=== PATIENT | male | born 1995 | race Caucasian/White ===

== ENCOUNTER 2019-03-25 17:05 | Emergency (ER) | payer SELFPAY ==
--- NOTE | 2019-03-25 17:20 | EDM.PDOC ---
ED HPI GENERAL MEDICAL PROBLEM - General Chief Complaint: Flank Pain Stated Complaint: BACK AND SIDE PAIN AND VOMITING Time Seen by Provider: 03/25/19 17:20 - History of Present Illness INITIAL COMMENTS - FREE TEXT/NARRATIVE: 23-year-old male presents to the emergency room with abdominal pain. This started about an hour ago started out as a right mid abdominal pain radiating into the groin. Now he has right-sided flank pain. Denies burning or frequency with urination. No fevers or chills. No prior history of kidney stone. The patient vomited once and has some mild nausea. Right Flank Pain Score (Numeric/FACES): 8 - Related Data Allergies Allergy/AdvReac Type Severity Reaction Status Date / Time No Known Allergies Allergy Verified 03/25/19 17:14 Home Meds: Home Meds Fluticasone/Salmeterol [Advair 250-50 Diskus] 2 puff INH ASDIRECTED 03/25/19 [ History] Hydrocodone/Acetaminophen [[place] 5-325 Tablet] 1 - 2 each PO Q6H PRN #30 tablet 03/25/19 [Rx] Loratadine [Claritin] 10 mg PO DAILY 03/25/19 [History] Ondansetron [Zofran ODT] 4 mg PO Q6H PRN #10 tab.dis 03/25/19 [Rx] Past Medical History Respiratory History: Reports: Asthma, Other (See Below) Other Respiratory History: seasonal allergies - Past Surgical History HEENT Surgical History: Reports: Myringotomy w Tube(s) Social & Family History - Tobacco Use Smoking Status *Q: Never Smoker - Caffeine Use Caffeine Use: Reports: Soda - Recreational Drug Use Recreational Drug Use: No ED ROS GENERAL - Review of Systems Review Of Systems: See Below Constitutional: Reports: No Symptoms HEENT: Reports: No Symptoms Respiratory: Reports: No Symptoms Cardiovascular: Reports: No Symptoms GI/Abdominal: Reports: Abdominal Pain, Nausea, Vomiting. Denies: Constipation, Diarrhea : Reports: Flank Pain. Denies: Discharge, Dysuria, Frequency, Hematuria, Incontinence, Urgency Skin: Reports: No Symptoms Neurological: Reports: No Symptoms ED EXAM, GI/ABD - Physical Exam Exam: See Below Exam Limited By: No Limitations General Appearance: Alert, Mild Distress (From the discomfort but he is very cooperative) Head: Atraumatic, Normocephalic Neck: Normal Inspection, Supple, Non-Tender, Full Range of Motion Respiratory/Chest: No Respiratory Distress, Lungs Clear, Normal Breath Sounds Cardiovascular: Regular Rate, Rhythm, No Edema, No Murmur GI/Abdominal Exam: No Distention, Other (Slightly diminished bowel sounds his pain is right sided not aggravated with palpation no rigidity rebound or guarding) Back Exam: Normal Inspection. No: CVA Tenderness (L), CVA Tenderness (R) Course - Vital Signs Last Recorded V/S: Last Vital Signs Temp 35.9 C 03/25/19 18:15 Pulse 54 L 03/25/19 18:15 Resp 12 03/25/19 18:15 BP 153/94 H 03/25/19 18:15 Pulse Ox 95 03/25/19 18:15 - Orders/Labs/Meds Orders: Active Orders 24 hr Category Date Time Status Lactated Ringers [Ringers, Lactated] 1,000 ml Med 03/25/19 17:30 Active IV ASDIRECTED Medication Orders Lactated Ringer's (Ringers, Lactated) 1,000 mls @ 125 mls/hr IV ASDIRECTED ILEANA Last Admin: 03/25/19 17:43 Dose: 125 mls/hr Labs: Laboratory Tests 03/25/19 03/25/19 03/25/19 Range/Units 17:30 17:30 18:24 WBC 14.48 H (4.23-9.07) K/mm3 RBC 5.08 (4.63-6.08) M/mm3 Hgb 15.2 (13.7-17.5) gm/L Hct 43.3 (40.1-51.0) % MCV 85.2 (79.0-92.2) fl MCH 29.9 (25.7-32.2) pg MCHC 35.1 (32.2-35.5) g/dl RDW Std Deviation 38.1 (35.1-43.9) fL Plt Count 413 H (163-337) K/mm3 MPV 9.2 L (9.4-12.3) fl Neutrophils % (Manual) 72 H (40-60) % Band Neutrophils % 0 (0-10) % Lymphocytes % (Manual) 19 L (20-40) % Atypical Lymphs % 0 % Monocytes % (Manual) 9 (2-10) % Eosinophils % (Manual) 0 L (0.8-7.0) % Basophils % (Manual) 0 L (0.2-1.2) Platelet Estimate Adequate RBC Morph Comment Normal Sodium 141 (136-145) mEq/L Potassium 3.9 (3.5-5.1) mEq/L Chloride 102 (98-107) mEq/L Carbon Dioxide 25 (21-32) mEq/L Anion Gap 17.9 H (5-15) BUN 12 (7-18) mg/dL Creatinine 1.0 (0.7-1.3) mg/dL Est Cr Clr Drug Dosing 117.61 mL/min Estimated GFR (MDRD) > 60 (>60) mL/min BUN/Creatinine Ratio 12.0 L (14-18) Glucose 134 H (74-106) mg/dL Calcium 9.1 (8.5-10.1) mg/dL Total Bilirubin 0.6 (0.2-1.0) mg/dL AST 39 H (15-37) U/L ALT 93 H (16-63) U/L Alkaline Phosphatase 35 L (46-116) U/L Total Protein 7.3 (6.4-8.2) g/dl Albumin 4.5 (3.4-5.0) g/dl Globulin 2.8 gm/dL Albumin/Globulin Ratio 1.6 (1-2) Urine Color Yellow (Yellow) Urine Appearance Clear (Clear) Urine pH 5.5 (5.0-8.0) Ur Specific [place] > or = 1.030 (1.005-1.030) Urine Protein Negative (Negative) Urine Glucose (UA) Negative (Negative) Urine Ketones 1+ H (Negative) Urine Occult Blood Trace-intact H (Negative) Urine Nitrite Negative (Negative) Urine Bilirubin Negative (Negative) Urine Urobilinogen 0.2 (0.2-1.0) Ur Leukocyte Esterase Negative (Negative) Urine RBC 0-5 (0-5) /hpf Urine WBC 0-5 (0-5) /hpf Ur Squamous Epith Cells Not seen (0-5) /hpf Urine Bacteria Few (FEW) /hpf Urine Mucus Few (FEW) /hpf Meds: Medications Generic Name Dose Route Start Last Admin Trade Name Freq PRN Reason Stop Dose Admin Lactated Ringer's 1,000 mls @ 125 mls/hr 03/25/19 17:30 03/25/19 17:43 Ringers, Lactated IV 125 mls/hr ASDIRECTED ILEANA Administration Discontinued Medications Generic Name Dose Route Start Last Admin Trade Name Bairon PRN Reason Stop Dose Admin Fentanyl 50 mcg 03/25/19 17:28 03/25/19 17:40 Sublimaze IVPUSH 03/25/19 17:29 50 mcg ONETIME ONE Administration Fentanyl 100 mcg 03/25/19 18:07 03/25/19 18:11 Sublimaze IVPUSH 03/25/19 18:08 100 mcg ONETIME ONE Administration Ketorolac Tromethamine 15 mg 03/25/19 18:48 03/25/19 19:05 Toradol IVPUSH 03/25/19 18:49 15 mg ONETIME ONE Administration Ondansetron HCl 4 mg 03/25/19 17:28 03/25/19 17:38 Zofran IVPUSH 03/25/19 17:29 4 mg ONETIME ONE Administration Ondansetron HCl 4 mg 03/25/19 18:07 03/25/19 18:13 Zofran IVPUSH 03/25/19 18:08 4 mg ONETIME ONE Administration - Re-Assessments/Exams Free Text/Narrative Re-Assessment/Exam: 03/25/19 19:38 Patient had good pain relief with several doses of fentanyl and Toradol. Patient CT confirms a kidney stone 3.2 mm causing moderate hydronephrosis proximal to this patient will be started [place] for outpatient treatment and instructed on how to strain his urine and will be given a prescription for Zofran. He will follow-up with Dr. Pyle early next week Departure - Departure Time of Disposition: 19:40 Disposition: Home, Self-Care 01 Clinical Impression: Right kidney stone - Discharge Information Prescriptions: Hydrocodone/Acetaminophen [[place] 5-325 Tablet] 1 - 2 each PO Q6H PRN #30 tablet PRN Reason: Pain Ondansetron [Zofran ODT] 4 mg PO Q6H PRN #10 tab.dis PRN Reason: Nausea/Vomiting Referrals: PCP,None [Primary Care Provider] - Gabriel Lora MD [Physician] - Forms: ED Department Discharge Additional Instructions: Return to the emergency room with any questions problems worsening symptoms return immediately if you develop fevers. Use the pain medication and the nausea medication as needed. Follow-up with Dr. Pyle early next week. [id number] Strain your urine is directed and find that stone. Return to clinic with this - My Orders Last 24 Hours: My Active Orders 03/25/19 17:30 Lactated Ringers [Ringers, Lactated] 1,000 ml IV ASDIRECTED - Assessment/Plan Last 24 Hours: My Active Orders 03/25/19 17:30 Lactated Ringers [Ringers, Lactated] 1,000 ml IV ASDIRECTED
[2019-03-25] MEDS ORDERED: Ondansetron 4 MG/2 ML SDV IVPUSH ONE ×2 (17:28→18:07)
[2019-03-25] MEDS ORDERED: fentaNYL 100 MCG/2 ML SDV IVPUSH ONE ×2 (17:28→18:07)
[2019-03-25] MEDS ORDERED: Lactated Ringers 1,000 ML IV SCH (17:30)
--- NOTE | 2019-03-25 18:12 | CT ---
CT abdomen and pelvis Technique: Multiple axial sections were obtained from above the dome of the diaphragm inferiorly through the pubic symphysis. Intravenous and oral contrast was not utilized. Study has been performed as a ureteral stone protocol. Comparison: No prior abdominal imaging. Right ureter is mildly prominent. This finding is caused by a 3.2 mm stone located within the very distal UVJ. No other abnormal calcifications are seen along the course of the ureters. No abnormal calcifications are seen within the kidneys. Visualized lung bases show nothing acute. Fatty infiltration seen throughout the liver. No focal abnormality is identified within the liver. Spleen appears within normal limits. Adrenal glands show no nodule. Pancreas is within normal limits. Gallbladder contains no calcified gallstones. Aorta shows no aneurysm. No retroperitoneal adenopathy or mesenteric abnormalities are seen. No pelvic mass or adenopathy is seen. No free fluid or inflammatory change is seen. Appendix is not visualized. Bone window settings were reviewed which shows scoliosis within the spine. No acute osseous abnormality is seen. Impression: 1. 3.2 mm stone causing mild proximal hydronephrosis on the right side. This stone is located within the very distal UVJ. 2. Fatty infiltration within the liver. 3. Other incidental findings as noted above. Diagnostic code #3
[2019-03-25] MEDS ORDERED: Ketorolac 15 MG/ML SDV IVPUSH ONE (18:48)
== END 2019-03-25 19:54 | disposition home or self-care (01) ==
LOC: JD.ED 17:05
DX: N13.2 Hydronephrosis with renal and ureteral calculous obstruction (principal); Z79.899 Other long term (current) drug therapy
CPT/HCPCS: 36415; 74176; 80053; 81001; 85007; 85027; 96361; 96374; 96375; 96376; 99284; J1885; J2405; J3010; J7120

== ENCOUNTER 2019-04-04 15:46 | Emergency (ER) | payer OTHER, BC ==
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
--- NOTE | 2019-04-05 08:44 | CR ---
Right shoulder: Three views of the right shoulder were obtained. Comparison: No previous right shoulder study. Lateral humeral joint and acromioclavicular joint appear within normal limits. No fracture, dislocation or other bony abnormality is seen. Impression: 1. No abnormality is appreciated on right shoulder exam. Diagnostic code #1
== END 2019-04-04 18:15 | disposition home or self-care (01) ==
LOC: JD.ED 15:46
DX: S40.011A Contusion of right shoulder, initial encounter (principal); Z79.899 Other long term (current) drug therapy; V86.99XA Unspecified occupant of other special all-terrain or other off-road motor vehicle injured in nontraffic accident, initial encounter
CPT/HCPCS: 73030-26-RT; 73030-RT; 99282; 99284-25